=== PATIENT | female | born 1990 | race Caucasian/White ===

== ENCOUNTER 2019-06-26 06:29 | Inpatient (IN) ==
[~2019-06-26 06:29] MED LIST: ANCEF 1 GRAM IV PREMIX* 1 G/50 ML BAG IV ONE; D5 1/2 NS 1000 ML 1,000 ML ONE; LR 1000 ML IV 1,000 ML ONE
[2019-06-26] MEDS ORDERED: D5 1/2 NS 1000 ML 1,000 ML IV SCH (06:36)
[2019-06-26] MEDS ORDERED: ANCEF VIAL 1 GRAM IVP ONE (06:36)
[2019-06-26] MEDS ORDERED: LR 1000 ML IV 1,000 ML ONE ×2 (07:03→07:58)
[2019-06-26] MEDS ORDERED: DILAUDID INJ ONE (07:05)
[2019-06-26] MEDS ORDERED: D5 1/2 NS 1L W PITOCIN 20 UNITS/L 20 UNITS/1,000 ML BAG IV ONE (07:05)
[2019-06-26 07:15] LABS: BASOPHILS % (AUTO) 0.3 % (0.2-1.0); EOSINOPHILS # (AUTO) 0.1 x10^3/uL (0.0-0.2); EOSINOPHILS % (AUTO) 1.3 % (0.9-2.9); HEMATOCRIT 36.6 % (36.0-47.0); HEMOGLOBIN 12.6 g/dL (12.0-16.0); LYMPHOCYTES # (AUTO) 1.7 X10^3/uL (1.3-2.9); MEAN CORPUSCULAR HEMOGLOBIN 30.4 pg (27.0-34.0); MEAN CORPUSCULAR HGB CONC 34.5 g/dL (33.0-35.0); MEAN PLATELET VOLUME 8.1 fL (7.4-11.0); MONOCYTES # (AUTO) 1.1 x10^3/uL (0.3-0.8); MONOCYTES % (AUTO) 12.2 % (0.0-13.0); NEUTROPHILS # (AUTO) 6.2 x10^3/uL (2.2-4.8); NEUTROPHILS % (AUTO) 67.2 % (42.0-75.0); PLATELET COUNT 310 X10^3/uL (150.0-450.0); RED BLOOD COUNT 4.16 X10^6/uL (3.5-5.4); RED CELL DISTRIBUTION WIDTH 13.9 % (11.6-16.5); WHITE BLOOD COUNT 9.2 X10^3/uL (3.6-10.0)
[2019-06-26 07:19] LABS: BILIRUBIN,URINE NEGATIVE (NEGATIVE); BLOOD/HEMOGLOBIN,URINE 1+ (NEGATIVE); GLUCOSE, URINE NEGATIVE (NEGATIVE); KETONES,URINE NEGATIVE (NEGATIVE); LEUKOCYTE ESTERASE ,URINE 1+ (NEGATIVE); NITRITES,URINE NEGATIVE (NEGATIVE); PROTEIN,URINE NEGATIVE (NEGATIVE); UROBILINOGEN,URINE NORMAL (NORMAL)
[2019-06-26] MEDS ORDERED: XYLOCAINE 1 % (PLAIN) ONE (07:21)
[2019-06-26 07:23] LABS: ALANINE AMINOTRANSFERASE 30 Units/L (12-78); ASPARTATE AMINO TRANSFERASE 22 Units/L (15-37); BLOOD UREA NITROGEN 7 mg/dL (7-18); CALCIUM 8.7 mg/dL (8.5-10.1); CARBON DIOXIDE 20.2 mmol/L (21-32); CHLORIDE 102 mmol/L (98-107); LACTATE DEHYDROGENASE 179 Units/L (81-234); SODIUM 137 mmol/L (136-145); URIC ACID 3.8 mg/dL (2.6-6.0); eGFR NON BLACK RACES > 60 (>60)
[2019-06-26 07:26] LABS: APPEARANCE,URINE HAZY (CLEAR); COLOR,URINE YELLOW (YELLOW); RBC,URINE 0-2 /HPF (NONE SEEN); SQUAMOUS EPITHELIAL CELL,UR MANY /HPF (NEGATIVE)
[2019-06-26 07:27] LABS: AMORPHOUS SEDIMENT,UR 1+ /HPF (NEGATIVE); BACTERIA,URINE TRACE /HPF (NEGATIVE)
[2019-06-26] MEDS ORDERED: ZOFRAN INJ 4 MG VIAL IVP PRN ×2 (09:01→10:18)
[2019-06-26] MEDS ORDERED: BENADRYL INJ 50 MG VIAL IVP PRN ×2 (09:01→10:18)
[2019-06-26] MEDS ORDERED: REGLAN INJ 10 MG VIAL IVP PRN ×2 (09:01→10:18)
[2019-06-26] MEDS ORDERED: PHENERGAN INJ 25 MG IM PRN (09:01)
[2019-06-26] MEDS ORDERED: NARCAN INJ ONE (09:10)
[2019-06-26] MEDS ORDERED: PITOCIN ONE (09:13)
[2019-06-26] MEDS ORDERED: DIPRIVAN VIAL ONE (09:13)
[2019-06-26] MEDS ORDERED: EPHEDRINE SULFATE INJ ONE (09:13)
[2019-06-26] MEDS ORDERED: XYLOCAINE 2 % (PLAIN) ONE (09:13)
[2019-06-26] MEDS ORDERED: ZOFRAN INJ 4 MG VIAL ONE (09:13)
[2019-06-26] MEDS ORDERED: NEO-SYNEPHRINE INJ ONE (09:13)
[2019-06-26] MEDS ORDERED: NS IRRIGATION 1000 ML ONE (09:18)
[2019-06-26] MEDS ORDERED: ADACEL or BOOSTRIX TDaP VACCINE IM ONE (10:18)
[2019-06-26] MEDS ORDERED: D5 1/2 NS 1000 ML 1,000 ML with PITOCIN 20 UNITS IV SCH ×2 (10:18)
[2019-06-26] MEDS ORDERED: NARCAN INJ IVP PRN (10:18)
[2019-06-26] MEDS ORDERED: TORADOL 30 MG VIAL IVP PRN (10:18)
[2019-06-26] MEDS ORDERED: MYLICON TAB 80 MG CHEW PO PRN (10:18)
[2019-06-26] MEDS ORDERED: PERCOCET TAB 5/325 MG PO PRN (10:18)
[2019-06-26] MEDS: ZANTAC PO SCH (21:50)
[2019-06-27 04:19] LABS: HEMATOCRIT 29.7 % (36.0-47.0)
[2019-06-27 04:21] LABS: HEMOGLOBIN 10.4 g/dL (12.0-16.0)
[2019-06-27] MEDS ORDERED: PERCOCET TAB 5/325 MG PO PRN (07:25)
[2019-06-27] MEDS: COLACE CAP 100 MG PO SCH ×2 (09:33→21:26)
[2019-06-27] MEDS: PRENATAL PLUS PO SCH (09:33)
[2019-06-27] MEDS: ZANTAC PO SCH ×2 (09:36→21:26)
[2019-06-27] MEDS: BACTROBAN CREAM TOP SCH ×2 (12:30→21:26)
[2019-06-27] MEDS: MOTRIN TAB 800 MG PO PRN ×2 (12:45→21:32)
[2019-06-28] MEDS: BACTROBAN CREAM TOP SCH (05:33)
[2019-06-28] MEDS: ZANTAC PO SCH (09:13)
[2019-06-28] MEDS: PRENATAL PLUS PO SCH (09:13)
[2019-06-28] MEDS: COLACE CAP 100 MG PO SCH (09:13)
[2019-06-28] MEDS: MOTRIN TAB 800 MG PO PRN (10:52)
[2019-06-28 11:19] VITALS: BP 126/78
== END 2019-06-28 11:40 | disposition home or self-care (01) | DRG 785 ==
LOC: LD 06:29 → MED/SURG 09:37
PROVIDERS: ADMIT Specialist; ATTEND Specialist
DX: Z37.0 Single live birth; Z30.2 Encounter for sterilization; N85.8 Other specified noninflammatory disorders of uterus; Z3A.39 39 weeks gestation of pregnancy; O34.211 Maternal care for low transverse scar from previous cesarean delivery; O13.3 Gestational [pregnancy-induced] hypertension without significant proteinuria, third trimester
CPT/HCPCS: 36415; 80048; 80307; 81001; 83615; 84450; 84460; 84550; 85014; 85018; 85025; 85384; 85610; 85730; 86592; 86850; 86900; 86901; A4216; A4222; S0197; G0434; J0690; J1170; J2310; J2370; J2405; J2590; J2704; J3490; J7120; S5010